=== PATIENT | male | born 1965 | race Caucasian/White ===

== ENCOUNTER 2023-11-26 09:46 | Emergency (ER) | payer MEDICAID ==
[~2023-11-26] VITALS: Ht 182.9 cm; Wt 114.4 kg
--- OUTSIDE RECORDS SUMMARY | ~2023-11-26 | XMS | Continuity of Care Document ---
Demographics + + + | Address | [address] | | | [place] [address] | + + + | Preferred Language | Unknown | + + + | Marital Status | Never | + + + | Pentecostal Affiliation | Rastafari (non-Church, non-specific) | + + + | Race | White | + + + | Ethnic Group | Unknown | + + + Author + + + | Author | [facility] | + + + | Organization | [facility] | + + + | Address | [address] [place] [address] | | | [place] [address] | + + + | Phone | | + + + Care Team Providers + + + + | Care Language Assistant Name | Role | Phone | + + + + Unavailable | Unavailable | + + + + Unavailable | Unavailable | + + + + Unavailable | Unavailable | + + + + Allergies No information. Encounters No information. Functional Status No information. Immunizations No information. Medications + + + + | date | description | facility | + + + + | 2023-09-25 00:00 | empagliflozin 25 mg oral | [facility] | | | tablet | [place] | + + + + | 2023-09-25 00:00 | jardiance 25 mg oral | [facility] | | | tablet | [place] | + + + + | 2023-09-11 00:00 | lidocaine 5 % medicated | [facility] | | | patch | [place] | + + + + | 2023-09-11 00:00 | lidocaine 5 % medicated | [facility] | | | patch | [facility] | + + + + | 2023-09-25 00:00 | celecoxib 200 mg oral | [facility] | | | capsule | [place] | + + + + | 2023-09-25 00:00 | celebrex 200 mg oral | [facility] | | | capsule | [place] | + + + + | 2023-09-26 00:00 | aspirin 81 mg delayed | [facility] | | | release oral tablet | [facility] [place] | + + + + | 2023-09-25 00:00 | gabapentin 800 mg oral | [facility] | | | tablet | [place] | + + + + | 2023-09-11 00:00 | tramadol hydrochloride 50 | [facility] | | | mg oral tablet | [place] | + + + + | 2023-09-11 00:00 | tramadol hydrochloride 50 | [facility] | | | mg oral tablet | [facility] [place] | + + + + Problems + + + + | date | description | facility | + + + + | (no date) | Type 2 diabetes mellitus | [facility] - | | | without complications | [place] | + + + + | (no date) | Unilateral primary | [facility] - | | | osteoarthritis, right hip | [place] | + + + + | (no date) | Encounter for other | [facility] - | | | preprocedural examination | [place] | + + + + | 2023-09-20 00:00 | osteoarthritis of right | [facility] | | | hip joint (disorder) | [place] | + + + + | 2023-09-20 00:00 | osteoarthritis of right | [facility] | | | hip joint (disorder) | [facility] | + + + + | 2023-09-20 00:00 | nicotine dependence | [facility] | | | (disorder) | [place] | + + + + | 2023-09-20 00:00 | nicotine dependence | [facility] | | | (disorder) | [facility] | + + + + | 2023-09-20 00:00 | marijuana user (finding) | [facility] | | | | [place] | + + + + | 2023-09-20 00:00 | marijuana user (finding) | [facility] | | | | [facility] [place] | + + + + | 2023-09-20 00:00 | kathia - obstructive sleep | [facility] | | | apnea | [place] | + + + + | 2023-09-20 00:00 | kathia - obstructive sleep | [facility] | | | apnea | [facility] | + + + + | 2023-09-20 00:00 | Marijuana use | [facility] | | | | [place] | + + + + | 2023-09-20 00:00 | Marijuana use | [facility] | | | | [facility] [place] | + + + + | 2023-09-20 00:00 | Chewing tobacco nicotine | [facility] | | | dependence without | [place] | | | complication | | + + + + | 2023-09-20 00:00 | Chewing tobacco nicotine | [facility] | | | dependence without | [facility] | | | complication | | + + + + | 2023-09-20 00:00 | Obstructive sleep apnea | [facility] | | | | [place] | + + + + | 2023-09-20 00:00 | Obstructive sleep apnea | [facility] | | | | [facility] [place] | + + + + | 2023-09-20 00:00 | Primary osteoarthritis of | [facility] | | | right hip | [place] | + + + + | 2023-09-20 00:00 | Primary osteoarthritis of | [facility] | | | right hip | [facility] | + + + + | 2023-09-20 15:47:19 | Chronic viral hepatitis C | [facility] - | | | | [place] | + + + + | 2023-09-20 15:47:19 | Type 2 diabetes mellitus | [facility] - | | | without complications | [place] | + + + + | 2023-09-20 15:47:19 | Alcohol abuse, | [facility] - | | | uncomplicated | [place] | + + + + | 2023-09-20 15:47:19 | Cannabis use, unspecified, | [facility] - | | | uncomplicated | [place] | + + + + | 2023-09-20 15:47:19 | Nicotine dependence, | [facility] - | | | chewing tobacco, | [place] | | | uncomplicated | | + + + + | 2023-09-20 15:47:19 | Obstructive sleep apnea | [facility] - | | | (adult) (pediatric) | [place] | + + + + | 2023-09-20 15:47:19 | Essential (primary) | [facility] - | | | hypertension | [place] | + + + + | 2023-09-20 15:47:19 | Unilateral primary | [facility] - | | | osteoarthritis, right hip | [place] | + + + + | 2023-09-20 15:47:19 | Cardiac murmur, | [facility] - | | | unspecified | [place] | + + + + | 2023-09-20 15:47:19 | Encounter for other | [facility] - | | | preprocedural examination | [place] | + + + + | 2023-09-20 15:47:19 | FCI (current) use of | [facility] - | | | insulin | [place] | + + + + | 2023-09-24 07:27:48 | Chronic viral hepatitis C | [facility] - | | | | [place] | + + + + | 2023-09-24 07:27:48 | Type 2 diabetes mellitus | [facility] - | | | without complications | [place] | + + + + | 2023-09-24 07:27:48 | Alcohol abuse, | [facility] - | | | uncomplicated | [place] | + + + + | 2023-09-24 07:27:48 | Essential (primary) | [facility] - | | | hypertension | [place] | + + + + | 2023-09-24 07:27:48 | Encounter for other | [facility] - | | | preprocedural examination | [place] | + + + + | 2023-09-24 07:27:48 | FCI (current) use of | [facility] - | | | insulin | [place] | + + + + | 2023-09-25 15:57:35 | Type 2 diabetes mellitus | [facility] - | | | without complications | [place] | + + + + | 2023-09-25 15:57:35 | Pain in right hip | [facility] - | | | | [place] | + + + + | 2023-10-10 14:45:22 | Obstructive sleep apnea | [facility] - | | | (adult) (pediatric) | [place] | + + + + | 2023-10-10 14:45:22 | Essential (primary) | [facility] - | | | hypertension | [place] | + + + + | 2023-10-10 14:45:22 | Cardiac murmur, | [facility] - | | | unspecified | [place] | + + + + | 2023-10-10 14:45:22 | Encounter for other | [facility] - | | | preprocedural examination | [place] | + + + + | 2023-10-28 08:25:29 | Type 2 diabetes mellitus | [facility] - | | | without complications | [place] | + + + + | 2023-10-28 08:25:29 | Pain in right hip | [facility] - | | | | [place] | + + + + | 2023-10-28 08:25:29 | Body mass index (BMI) | [facility] - | | | 35.0-35.9, adult | [place] | + + + + | 2023-10-28 08:25:29 | Tobacco use | [facility] - | | | | [place] | + + + + | 2023-11-14 10:34 | Type 2 diabetes mellitus | [facility] - | | | with foot ulcer | [place] | + + + + | 2023-11-14 10:34 | Type 2 diabetes mellitus | [facility] - | | | without complications | [place] | + + + + | 2023-11-14 10:34 | Non-pressure chronic ulcer | [facility] - | | | of other part of | [place] | | | unspecified foot with | | | | unspecified severity | | + + + + | 2023-11-14 10:34 | Encounter for other | [facility] - | | | preprocedural examination | [place] | + + + + | 2023-11-14 10:34 | Presence of right | [facility] - | | | artificial hip joint | [place] | + + + + Procedures + + + + | date | description | facility | + + + + | 2023-09-24 00:00 | HC TSH | [facility] | | | | [facility] | + + + + | 2023-09-21 00:00 | DE ECG ROUTINE ECG W/LEAST | [facility] | | | 12 LDS I&R ONLY | [facility] [place] | + + + + Results/Labs +--------+--------+ +---------+--------+---------+ | test | date | facility | value | unit | notes | +--------+--------+ +---------+--------+---------+ + + | Result panel 1 | + + + + + + + + + | Specimen | (no date) | [facility] | (missing) | (missing) | (missing) | | collection | | Preoperative | | | | | (procedure) | | [facility] | | | | | | | Clinic | | | | | | | [place] | | | | + + + + + + + + + | Result panel 2 | + + + + + + + + + | Specimen | (no date) | [facility] | (missing) | (missing) | (missing) | | collection | | Preoperative | | | | | (procedure) | | Medicine | | | | | | | Clinic | | | | | | | [place] | | | | + + + + + + + + + | Result panel 3 | + + + + + + + + + | | (no date) | [facility] | (missing) | (missing) | (missing) | | (unavailable | | [facility] | | | | | ) | | [facility] | | | | | | | [facility] | | | | | | | [place] | | | | + + + + + + + + + | Result panel 4 | + + + + + + + + + | Specimen | (no date) | [facility] | (missing) | (missing) | (missing) | | collection | | Preoperative | | | | | (procedure) | | Medicine | | | | | | | Clinic | | | | | | | [place] | | | | + + + + + + + + + | Result panel 5 | + + + + + + + + + | Specimen | (no date) | [facility] | (missing) | (missing) | (missing) | | collection | | Preoperative | | | | | (procedure) | | Medicine | | | | | | | Clinic | | | | | | | [place] | | | | + + + + + + + + + | Result panel 6 | + + + + + + + + + | | (no date) | [facility] | (missing) | (missing) | (missing) | | (unavailable | | Preoperative | | | | | ) | | Medicine | | | | | | | Clinic | | | | | | | [place] | | | | + + + + + + + + + | Result panel 7 | + + + + + + + + + | Specimen | (no date) | [facility] | (missing) | (missing) | (missing) | | collection | | Preoperative | | | | | (procedure) | | Medicine | | | | | | | Clinic | | | | | | | [place] | | | | + + + + + + + + + | Result panel 8 | + + + + + + + + + | | (no date) | [facility] | (missing) | (missing) | (missing) | | (unavailable | | Preoperative | | | | | ) | | Medicine | | | | | | | Clinic | | | | | | | [place] | | | | + + + + + + + + + | Result panel 9 | + + + + + + + + + | Specimen | (no date) | [facility] | (missing) | (missing) | (missing) | | collection | | Preoperative | | | | | (procedure) | | Medicine | | | | | | | Clinic | | | | | | | [place] | | | | + + + + + + + + + | Result panel 10 | + + + + + + + + + | | (no date) | [facility] | (missing) | (missing) | (missing) | | (unavailable | | Preoperative | | | | | ) | | Medicine | | | | | | | Clinic | | | | | | | [place] | | | | + + + + + + + + + | Result panel 11 | + + + + + + + + + | Specimen | (no date) | [facility] | (missing) | (missing) | (missing) | | collection | | Preoperative | | | | | (procedure) | | Medicine | | | | | | | Clinic | | | | | | | [place] | | | | + + + + + + + + + | Result panel 12 | + + + + + + + + + | | (no date) | [facility] | (missing) | (missing) | (missing) | | (unavailable | | Preoperative | | | | | ) | | Medicine | | | | | | | Clinic | | | | | | | [place] | | | | + + + + + + + + + | Result panel 13 | + + + + + + + + + | Specimen | (no date) | [facility] | (missing) | (missing) | (missing) | | collection | | Preoperative | | | | | (procedure) | | Medicine | | | | | | | Clinic | | | | | | | [place] | | | | + + + + + + + + + | Result panel 14 | + + + + + + + + + | | (no date) | [facility] | (missing) | (missing) | (missing) | | (unavailable | | Preoperative | | | | | ) | | Medicine | | | | | | | Clinic | | | | | | | [place] | | | | + + + + + + + + + | Result panel 15 | + + + + + + + + + | Specimen | (no date) | [facility] | (missing) | (missing) | (missing) | | collection | | Preoperative | | | | | (procedure) | | Medicine | | | | | | | Clinic | | | | | | | [place] | | | | + + + + + + + + + | Result panel 16 | + + + + + + + + + | | (no date) | [facility] | (missing) | (missing) | (missing) | | (unavailable | | Preoperative | | | | | ) | | Medicine | | | | | | | Clinic | | | | | | | [place] | | | | + + + + + + + + + | Result panel 17 | + + + + + +--------+ + + | TSH | 2023-09-20 | [facility] | 2.06 | mciu/ml | (missing) | | (THYROTROPIN | | Health | | | | | ) (UIU/ML) | | System - | | | | | IN SER/PLAS | | [place] | | | | + + + +--------+ + + + + | Result panel 18 | + + + + + + + + + | | 2023-09-21 | [facility] | (missing) | (missing) | (missing) | | (unavailable | 00:45:05 | Preoperative | | | | | ) | | Medicine | | | | | | | Clinic | | | | | | | [place] | | | | + + + + + + + + + | Result panel 19 | + + + + + + + + + | | 2023-09-21 | [facility] | (missing) | (missing) | (missing) | | (unavailable | 00:45:05 | Preoperative | | | | | ) | | Medicine | | | | | | | Clinic | | | | | | | [place] | | | | + + + + + + + + + | Result panel 20 | + + + + + +--------+ + + | EGFR | 2023-09-24 | [facility] | > | | (missing) | | (GLOMERULAR | :12 | Health | | ml/min/1.73m | | | FILTRATION | | System - | | ? | | | RATE) | | [place] | | | | | ML/MIN/1.73 | | | | | | | SQ M. | | | | | | + + + +--------+ + + | NRBC/100 | 2023-09-24 | [facility] | 0.0 | % | (missing) | | WBCS BY | :12 | Health | | | | | AUTOMATED | | System - | | | | | COUNT | | [place] | | | | + + + +--------+ + + | BASOPHILS | 2023-09-24 | [facility] | 0.0 | k/mcl | (missing) | | (10*3/UL) IN | :12 | Health | | | | | BLOOD BY | | System - | | | | | AUTOMATED | | [place] | | | | | COUNT | | | | | | + + + +--------+ + + | | 2023-09-24 | [facility] | 0.0 | k/mcl | (missing) | | NRBC(10*3/UL | 07:28:12 | Health | | | | | ) IN BLOOD | | System - | | | | | BY AUTOMATED | | [place] | | | | | COUNT | | | | | | + + + +--------+ + + | IMMATURE | 2023-09-24 | [facility] | 0.02 | k/mcl | (missing) | | GRANULOCYTE | 07:28:12 | Health | | | | | (ABS) | | System - | | | | | | | [place] | | | | + + + +--------+ + + | | 2023-09-24 | [facility] | 0.2 | % | (missing) | | BASOPHILS/10 | 07:28:12 | Health | | | | | 0 LEUKOCYTES | | System - | | | | | IN BLOOD BY | | [place] | | | | | AUTOMATED | | | | | | | COUNT | | | | | | + + + +--------+ + + | EOSINOPHILS | 2023-09-24 | [facility] | 0.2 | k/mcl | (missing) | | (10*3/UL) | 07:28:12 | Health | | | | | IN BLOOD BY | | System - | | | | | AUTOMATED | | [place] | | | | | COUNT | | | | | | + + + +--------+ + + | IMMATURE | 2023-09-24 | [facility] | 0.3 | % | (missing) | | GRANULOCYTE | :12 | Health | | | | | % (AUTO) | | System - | | | | | | | [place] | | | | + + + +--------+ + + | BILIRUBIN | 2023-09-24 | [facility] | 0.4 | mg/dl | (missing) | | TOTAL | :12 | Health | | | | | (MG/DL) IN | | System - | | | | | SER/PLAS | | [place] | | | | + + + +--------+ + + | MONOCYTES | 2023-09-24 | [facility] | 0.5 | k/mcl | (missing) | | (10*3/UL) IN | :12 | Health | | | | | BLOOD BY | | System - | | | | | AUTOMATED | | [place] | | | | | COUNT | | | | | | + + + +--------+ + + | CREATININE | 2023-09-24 | [facility] | 0.5 | mg/dl | (missing) | | (MG/DL) IN | :28:12 | Health | | | | | SER/PLAS | | System - | | | | | | | [place] | | | | + + + +--------+ + + | INR | 2023-09-24 | [facility] | 1.0 | (missing) | (missing) | | | 07:28:12 | Health | | | | | | | System - | | | | | | | [place] | | | | + + + +--------+ + + | ALKALINE | 2023-09-24 | [facility] | 125 | u/l | (missing) | | PHOSPHATASE | 07:28:12 | Health | | | | | (U/L) IN | | System - | | | | | SER/PLAS | | [place] | | | | + + + +--------+ + + | PT | 2023-09-24 | [facility] | 13.0 | seconds | INR is valid | | (PROTHROMBIN | 28:12 | Health | | | for | | TIME) | | System - | | | patients on | | | | [place] | | | coumadin | | | | | | | therapy, or | | | | | | | may be | | | | | | | useful in | | | | | | | the context | | | | | | | of massive | | | | | | | transfusion | | | | | | | protocol. | | | | | | | Recommended | | | | | | | INR | | | | | | | Therapeutic | | | | | | | Range for | | | | | | | Coumadin | | | | | | | Therapy: | | | | | | | Prophylaxis | | | | | | | and | | | | | | | treatment of | | | | | | | venous | | | | | | | thrombosis | | | | | | | or pulmonary | | | | | | | embolism | | | | | | | 2.0 - 3.0 | | | | | | | Tissue heart | | | | | | | valves ' ' | | | | | | | Acute IA ' ' | | | | | | | Valvular | | | | | | | heart | | | | | | | disease ' ' | | | | | | | Atrial | | | | | | | fibrillation | | | | | | | ' ' | | | | | | | Mechanical | | | | | | | prosthetic | | | | | | | valves (high | | | | | | | risk) 2.5 - | | | | | | | 3.5 | + + + +--------+ + + | ERYTHROCYTE | 2023-09-24 | [facility] | 13.2 | % | (missing) | | | 07:28:12 | Health | | | | | DISTRIBUTION | | System - | | | | | WIDTH | | [place] | | | | | (RATIO) BY | | | | | | | AUTOMATED | | | | | | | COUNT | | | | | | + + + +--------+ + + | SODIUM | 2023-09-24 | [facility] | 133 | mmol/l | (missing) | | (MMOL/L) IN | | Health | | | | | SER/PLAS | | System - | | | | | | | [place] | | | | + + + +--------+ + + | HEMOGLOBIN | 2023-09-24 | [facility] | 15.7 | g/dl | (missing) | | (G/DL) IN | :12 | Health | | | | | BLOOD | | System - | | | | | | | [place] | | | | + + + +--------+ + + | GLUCOSE, | 2023-09-24 | [facility] | 180 | mg/dl | (missing) | | RANDOM | 12 | Health | | | | | (MG/DL) IN | | System - | | | | | SER/PLAS | | [place] | | | | + + + +--------+ + + | ESTIMATED | 2023-09-24 | [facility] | 180 | mg/dl | | | AVERAGE BLD | 07:28:12 | Health | | | | | GLUCOSE | | System - | | | | | | | [place] | | | | + + + +--------+ + + Social History + + + + | date | description | facility | + + + + | 2023-09-20 00:00 | Never smoked tobacco | [facility] | | | | [place] | + + + + | 2023-09-20 00:00 | Never smoked tobacco | [facility] | | | | [facility] [place] | + + + + Vital Signs + + + +---------+ | date | measurement | value | units | + + + +---------+ | 2023-09-20 00:00 | BMI | 35.26 | kg/m2 | + + + +---------+ | 2023-09-20 00:00 | BP_diastolic | 73 | mmHg | + + + +---------+ | 2023-09-20 00:00 | BP_systolic | 124 | mmHg | + + + +---------+ | 2023-09-20 00:00 | heart_rate | 88 | /min | + + + +---------+ | 2023-09-20 00:00 | height_metric | 182.9 | cm | + + + +---------+ | 2023-09-20 00:00 | height_standard | 72.01 | in | + + + +---------+ | 2023-09-20 00:00 | o2_saturation | 91 | % | + + + +---------+ | 2023-09-20 00:00 | respiration_rate | 16 | /min | + + + +---------+ | 2023-09-20 00:00 | temperature_metric | 36.78 | C | | | | | | + + + +---------+ | 2023-09-20 00:00 | | 98.2 | F | | | temperature_standar | | | | | d | | | + + + +---------+ | 2023-09-20 00:00 | weight_metric | 117.94 | kg | + + + +---------+ | 2023-09-20 00:00 | weight_standard | 260 | lb | + + + +---------+ | 2023-09-26 00:00 | BMI | 34.86 | kg/m2 | + + + +---------+ | 2023-09-26 00:00 | BP_diastolic | 78 | mmHg | + + + +---------+ | 2023-09-26 00:00 | BP_systolic | 134 | mmHg | + + + +---------+ | 2023-09-26 00:00 | heart_rate | 89 | /min | + + + +---------+ | 2023-09-26 00:00 | o2_saturation | 92 | % | + + + +---------+ | 2023-09-26 00:00 | temperature_metric | 37 | C | | | | | | + + + +---------+ | 2023-09-26 00:00 | | 98.6 | F | | | temperature_standar | | | | | d | | | + + + +---------+ | 2023-09-26 00:00 | weight_metric | 116.57 | kg | + + + +---------+ | 2023-09-26 00:00 | weight_standard | 257 | lb | + + + +---------+"
--- OUTSIDE RECORDS SUMMARY | 2023-11-26 09:50 | XMS ---
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 PHONE: [phone] SARABJIT PACHECO V Nurse Practitioner: Family Current PHONE: [phone] Yo has no Care Guidelines for this patient. Virgie VISIT COUNT (12 MO.) Gayatri Steele TOTAL 1 NOTE: Visits indicate total known visits. ED/UCC VISIT TRACKING (12 MO.) 11/26/2023 09:48 [facility] [place] TYPE: Emergency COMPLAINT: - L FOOT WOUND INPATIENT VISIT TRACKING (12 MO.) 11/14/2023 10:34 [facility] [place] TYPE: Orthopedic DIAGNOSES: - Encounter for other preprocedural examination - Non-pressure chronic ulcer of other part of unspecified foot with unspecified severity - Presence of right artificial hip joint - Type 2 diabetes mellitus with foot ulcer - Type 2 diabetes mellitus without complications [email or web address]
[2023-11-26] MEDS ORDERED: AMLODIPINE BESYL5 MG PO (10:44)
[2023-11-26] MEDS ORDERED: ATORVASTATIN CA40 MG PO (10:44)
[2023-11-26] MEDS ORDERED: JARDIANCE25 MG PO (10:44)
[2023-11-26] MEDS ORDERED: OXYCODONE HCL5 MG PO (10:44)
[2023-11-26] MEDS ORDERED: ACETAMINOPHEN325 M1 PO (10:45)
[2023-11-26] MEDS ORDERED: CYCLOBENZAPRINE10 MG PO (10:45)
[2023-11-26] MEDS ORDERED: GLIPIZIDE10 MG PO (10:45)
[2023-11-26] MEDS ORDERED: ASPIRIN81 MG PO (10:45)
[2023-11-26] MEDS ORDERED: LANTUS SOL100 UNIT/1 SUB-Q (10:45)
[2023-11-26] MEDS ORDERED: MELOXICAM15 MG PO (10:46)
[2023-11-26] MEDS ORDERED: GABAPENTIN800 MG PO (10:46)
[2023-11-26] MEDS ORDERED: HUMALOG100 UNIT/2 SUB-Q (10:46)
[2023-11-26] MEDS ORDERED: PEN NEEDLE1 EAC9 MISC (10:46)
[2023-11-26] MEDS ORDERED: DOXYCYCLINE HY100 MG PO (10:46)
[2023-11-26] MEDS ORDERED: LISINOPRIL20 MG PO (10:46)
[2023-11-26] MEDS ORDERED: TRAMADOL HCL50 MG PO (10:46)
[2023-11-26] MEDS ORDERED: METFORMIN HCL1000 MG PO (10:46)
[2023-11-26 11:33] VITALS: BP 148/88
== END 2023-11-26 11:50 | disposition home or self-care (01) ==
LOC: ED 09:46
DX: S91.302A Unspecified open wound, left foot, initial encounter (principal); I10 Essential (primary) hypertension; X58.XXXA Exposure to other specified factors, initial encounter; Z79.899 Other long term (current) drug therapy; Z79.4 Long term (current) use of insulin; Z79.82 Long term (current) use of aspirin; Z79.84 Long term (current) use of oral hypoglycemic drugs
CPT/HCPCS: 99283